=== PATIENT | female | born 1980 | race Two or more races ===

== ENCOUNTER 2024-02-13 14:59 | Emergency (ER) | payer BC ==
[~2024-02-13] VITALS: Ht 165.1 cm; Wt 61.2 kg
[2024-02-13] MEDS ORDERED: ACETAMINOPHEN WITH CODEINE 1 UDTAB TABLET PO ONE (16:15)
[2024-02-13] MEDS ORDERED: TETANUS & DIPHTHERIA TOX,ADULT 0.5 ML VIAL IM ONE (16:15)
[2024-02-13] MEDS ORDERED: LIDOCAINE HCL 1% 10ML VIAL PERCUT ONE (16:30)
[2024-02-13] MEDS ORDERED: ORPHENADRINE CITRATE 30 MG/ML AMPUL IM ONE (18:30)
== END 2024-02-13 21:57 | disposition home or self-care (01) ==
LOC: ER 14:59
DX: S82.092A Other fracture of left patella, initial encounter for closed fracture (principal); W19.XXXA Unspecified fall, initial encounter; Y93.89 Activity, other specified; Y92.89 Other specified places as the place of occurrence of the external cause; Y99.8 Other external cause status; Q78.0 Osteogenesis imperfecta